=== PATIENT | male | born 1965 | race Caucasian/White ===

== ENCOUNTER 2020-06-29 12:28 | Inpatient (IN) | payer BC ==
[2020-06-29 13:53] VITALS: BMI 27.1
[2020-06-29] MEDS ORDERED: IBUPROFEN 400 MG TABLET (FP) PO PRN (14:24)
[2020-06-29] MEDS ORDERED: METHADONE HCL 10 MG TABLET (FOR DETOX USE ONLY) PO ONE (14:24)
[2020-06-29] MEDS ORDERED: MAGNESIUM HYDROX 2400MG/30ML ORAL SUSPENSION 30 ML CUP PO PRN (14:24)
[2020-06-29] MEDS ORDERED: MAGNESIUM CITRATE 300 ML BOTTLE PO PRN (14:24)
[2020-06-29] MEDS ORDERED: ACETAMINOPHEN 325 MG TABLET (FP) PO PRN ×2 (14:24)
[2020-06-29] MEDS ORDERED: MENTHOL/PHENOL 1 EACH UD MM PRN (14:24)
[2020-06-29] MEDS ORDERED: MAG HYDROX/AL HYDROX/SIMETH 30 ML UNIT-DOSE CUP PO PRN (14:24)
[2020-06-29] MEDS ORDERED: BISMUTH SUBSALICYLATE 262 MG/15 ML BTL PO PRN (14:24)
[2020-06-29] MEDS ORDERED: cloNIDine HCL 0.1 MG TABLET PO PRN (14:24)
[2020-06-29] MEDS ORDERED: ONDANSETRON *ODT* 4 MG TABLET SL PRN (14:24)
[2020-06-29] MEDS: METHOCARBAMOL 500 MG TABLET PO PRN (15:43)
[2020-06-29 17:30] LABS: HEMATOCRIT 37.3 % (35.4-49); HEMOGLOBIN 12.6 GM/dL (11.7-16.9); MCH 29.1 pg (25.7-33.7); MCHC 33.8 g/dl (32.0-35.9); MEAN PLT VOLUME 7.8 fl (7.5-11.1); PLATELET COUNT 185 K/MM3 (134-434); RBC 4.33 M/mm3 (4.00-5.60); RDW 13.5 % (11.9-15.9); WHITE BLOOD COUNT 6.7 K/mm3 (4.0-10.0)
[2020-06-29 17:32] LABS: BLOOD UREA NITROGEN 18.6 mg/dL (7-18); CALCIUM 8.8 mg/dL (8.5-10.1)
[2020-06-29] MEDS: hydrOXYzine PAMOATE 25 MG CAPSULE (FP) PO SCH ×2 (17:33→22:09)
[2020-06-29 17:36] LABS: CREATININE 1.1 mg/dL (0.55-1.3)
[2020-06-29 17:37] LABS: BILIRUBIN,TOTAL 0.4 mg/dL (0.2-1); TOT PROT 7.7 g/dl (6.4-8.2)
[2020-06-29] MEDS: MELATONIN 5 MG TABLETS PO SCH (22:09)
[2020-06-29] MEDS: THIAMINE HCL 100 MG TABLET (FP) PO SCH (22:09)
[2020-06-29] MEDS: BACITRACIN 0.9 GM PACKET TP SCH (22:09)
[2020-06-30] MEDS: hydrOXYzine PAMOATE 25 MG CAPSULE (FP) PO SCH ×5 (05:22→22:28)
[2020-06-30] MEDS ORDERED: diazePAM 5 MG TABLET PO PRN (09:13)
[2020-06-30] MEDS ORDERED: METHADONE HCL 10 MG TABLET (FOR DETOX USE ONLY) ONE (09:15)
[2020-06-30] MEDS ORDERED: METHADONE HCL 5 MG TABLET (FOR DETOX USE ONLY) ONE (09:16)
[2020-06-30] MEDS: PRENATAL VITAMINS W/ FOLIC ACID TABLET (FP) PO SCH (09:57)
[2020-06-30] MEDS: METHOCARBAMOL 500 MG TABLET PO PRN (09:57)
[2020-06-30] MEDS: BACITRACIN 0.9 GM PACKET TP SCH ×2 (09:57→22:28)
[2020-06-30] MEDS ORDERED: METHADONE (DETOX) 20 MG, METHADONE (DETOX) 5 MG PO ONE (10:00)
[2020-06-30 12:21] LABS: HIV INTERPRETATION NEGATIVE (NEGATIVE)
[2020-06-30] MEDS: THIAMINE HCL 100 MG TABLET (FP) PO SCH (22:28)
[2020-06-30] MEDS: MELATONIN 5 MG TABLETS PO SCH (22:28)
[2020-07-01] MEDS: hydrOXYzine PAMOATE 25 MG CAPSULE (FP) PO SCH ×5 (07:11→23:08)
[2020-07-01] MEDS ORDERED: METHADONE HCL 10 MG TABLET (FOR DETOX USE ONLY) PO ONE (10:00)
[2020-07-01] MEDS: BACITRACIN 0.9 GM PACKET TP SCH ×2 (10:16→23:08)
[2020-07-01] MEDS: METHOCARBAMOL 500 MG TABLET PO PRN (10:16)
[2020-07-01] MEDS: PRENATAL VITAMINS W/ FOLIC ACID TABLET (FP) PO SCH (10:16)
[2020-07-01] MEDS: THIAMINE HCL 100 MG TABLET (FP) PO SCH (23:08)
[2020-07-01] MEDS: MELATONIN 5 MG TABLETS PO SCH (23:09)
[2020-07-02] MEDS: hydrOXYzine PAMOATE 25 MG CAPSULE (FP) PO SCH ×5 (07:10→22:20)
[2020-07-02] MEDS ORDERED: METHADONE HCL 5 MG TABLET (FOR DETOX USE ONLY) ONE (09:07)
[2020-07-02] MEDS ORDERED: METHADONE HCL 10 MG TABLET (FOR DETOX USE ONLY) ONE (09:07)
[2020-07-02] MEDS ORDERED: METHADONE (DETOX) 10 MG, METHADONE (DETOX) 5 MG PO ONE (10:00)
[2020-07-02] MEDS: PRENATAL VITAMINS W/ FOLIC ACID TABLET (FP) PO SCH (10:14)
[2020-07-02] MEDS: BACITRACIN 0.9 GM PACKET TP SCH ×2 (10:15→22:20)
[2020-07-02] MEDS: MELATONIN 5 MG TABLETS PO SCH (22:20)
[2020-07-02] MEDS: THIAMINE HCL 100 MG TABLET (FP) PO SCH (22:20)
[2020-07-03] MEDS: hydrOXYzine PAMOATE 25 MG CAPSULE (FP) PO SCH ×5 (07:15→22:06)
[2020-07-03] MEDS ORDERED: METHADONE HCL 10 MG TABLET (FOR DETOX USE ONLY) PO ONE (10:00)
[2020-07-03] MEDS: PRENATAL VITAMINS W/ FOLIC ACID TABLET (FP) PO SCH (10:12)
[2020-07-03] MEDS: BACITRACIN 0.9 GM PACKET TP SCH ×2 (10:12→22:06)
[2020-07-03] MEDS: MELATONIN 5 MG TABLETS PO SCH (22:06)
[2020-07-03] MEDS: THIAMINE HCL 100 MG TABLET (FP) PO SCH (22:06)
[2020-07-04] MEDS ORDERED: METHADONE HCL 5 MG TABLET (FOR DETOX USE ONLY) PO ONE (06:00)
[2020-07-04 06:18] VITALS: BP 112/60; PULSE 44; TEMP 97.3
[2020-07-04] MEDS: hydrOXYzine PAMOATE 25 MG CAPSULE (FP) PO SCH ×2 (07:56→09:10)
[2020-07-04] MEDS: BACITRACIN 0.9 GM PACKET TP SCH (09:10)
== END 2020-07-04 09:11 | disposition home or self-care (01) | DRG 773 ==
LOC: YASAS 12:28 → Y3N 14:57
PROVIDERS: ADMIT Allergy & Immunology; ATTEND Allergy & Immunology
PROC: HZ2ZZZZ Detoxification Services for Substance Abuse Treatment (ICD-10-PCS; principal; 2020-06-29)
DX: F11.23 Opioid dependence with withdrawal (principal); F10.230 Alcohol dependence with withdrawal, uncomplicated; F13.20 Sedative, hypnotic or anxiolytic dependence, uncomplicated; F19.24 Other psychoactive substance dependence with psychoactive substance-induced mood disorder; R22.31 Localized swelling, mass and lump, right upper limb; R73.9 Hyperglycemia, unspecified; S60.522A Blister (nonthermal) of left hand, initial encounter; X58.XXXA Exposure to other specified factors, initial encounter; Y93.9 Activity, unspecified; Y92.239 Unspecified place in hospital as the place of occurrence of the external cause; Y99.9 Unspecified external cause status; Z59.0 Homelessness
CPT/HCPCS: 36415; 80053; 82962; 85027; 86780; 87389; 93005; 93010; C9803; U0003

== ENCOUNTER 2021-09-06 13:30 | Inpatient (IN) | payer BC ==
[2021-09-06] MEDS ORDERED: BISMUTH SUBSALICYLATE 262 MG/15 ML BTL PO PRN (14:35)
[2021-09-06] MEDS ORDERED: MENTHOL/PHENOL 1 EACH UD MM PRN (14:35)
[2021-09-06] MEDS ORDERED: MAGNESIUM CITRATE 300 ML BOTTLE PO PRN (14:35)
[2021-09-06] MEDS ORDERED: MAG HYDROX/AL HYDROX/SIMETH 30 ML UNIT-DOSE CUP PO PRN (14:35)
[2021-09-06] MEDS ORDERED: MAGNESIUM HYDROX 2400MG/30ML ORAL SUSPENSION 30 ML CUP PO PRN (14:35)
[2021-09-06] MEDS ORDERED: ONDANSETRON *ODT* 4 MG TABLET SL PRN (14:35)
[2021-09-06] MEDS ORDERED: IBUPROFEN 400 MG TABLET (FP) PO PRN (14:35)
[2021-09-06] MEDS ORDERED: cloNIDine HCL 0.1 MG TABLET PO PRN (14:35)
[2021-09-06] MEDS ORDERED: ACETAMINOPHEN 325 MG TABLET (FP) PO PRN ×2 (14:35)
[2021-09-06] MEDS ORDERED: NICOTINE 10 MG CARTRIDGE (INHALER) IH PRN (14:35)
[2021-09-06 15:38] VITALS: BMI 28.8
[2021-09-06] MEDS ORDERED: methaDONE HCL 10 MG TABLET (FOR DETOX USE ONLY) PO ONE (20:15)
[2021-09-06] MEDS: diazePAM 5 MG TABLET PO SCH ×2 (20:21→22:33)
[2021-09-06] MEDS: methaDONE HCL 10 MG TABLET (FOR DETOX USE ONLY) PO ONE ×2 (20:22→20:32)
[2021-09-06] MEDS: METHOCARBAMOL 500 MG TABLET PO PRN (20:24)
[2021-09-06] MEDS: hydrOXYzine PAMOATE 25 MG CAPSULE (FP) PO SCH ×2 (20:24→22:32)
[2021-09-06] MEDS: MELATONIN 5 MG TABLETS PO SCH (22:32)
[2021-09-06] MEDS: THIAMINE HCL 100 MG TABLET (FP) PO SCH (22:33)
[2021-09-07] MEDS: diazePAM 5 MG TABLET PO SCH ×4 (05:55→22:36)
[2021-09-07] MEDS: hydrOXYzine PAMOATE 25 MG CAPSULE (FP) PO SCH ×5 (05:56→22:36)
[2021-09-07] MEDS ORDERED: methaDONE HCL 10 MG TABLET (FOR DETOX USE ONLY) ONE (08:57)
[2021-09-07] MEDS: METHOCARBAMOL 500 MG TABLET PO PRN (09:44)
[2021-09-07] MEDS: PRENATAL VITAMINS W/ FOLIC ACID TABLET (FP) PO SCH (09:45)
[2021-09-07] MEDS ORDERED: cloNIDine HCL 0.1 MG TABLET PO PRN (11:23)
[2021-09-07] MEDS ORDERED: BUPRENORPHINE HCL 150 MCG, BUPRENORPHINE HCL 75 MCG BC ONE (11:23)
[2021-09-07 13:10] LABS: HEMATOCRIT 36.8 % (35.4-49); MCH 28.5 pg (25.7-33.7); MCHC 32.7 g/dl (32.0-35.9); MEAN CELL VOLUME 86.9 fl (80-96); MEAN PLT VOLUME 7.6 fl (7.5-11.1); PLATELET COUNT 153 10^3/uL (134-434); RBC 4.23 M/mm3 (4.00-5.60); RDW 13.7 % (11.9-15.9); WHITE BLOOD COUNT 3.6 K/mm3 (4.0-10.0)
[2021-09-07 13:32] LABS: CALCIUM 8.6 mg/dL (8.5-10.1)
[2021-09-07 13:33] LABS: BLOOD UREA NITROGEN 21.8 mg/dL (7-18)
[2021-09-07 13:35] LABS: ALBUMIN 3.2 g/dl (3.4-5.0)
[2021-09-07 13:37] LABS: TOT PROT 6.2 g/dl (6.4-8.2)
[2021-09-07 13:39] LABS: BILIRUBIN,TOTAL 0.3 mg/dL (0.2-1)
[2021-09-07] MEDS ORDERED: BUPRENORPHINE HCL 150 MCG FILM BC ONE (17:56)
[2021-09-07] MEDS ORDERED: BUPRENORPHINE HCL 75 MCG FILM BC ONE (17:57)
[2021-09-07] MEDS: BUPRENORPHINE HCL 150 MCG, BUPRENORPHINE HCL 75 MCG BC SCH (18:00)
[2021-09-07] MEDS: MELATONIN 5 MG TABLETS PO SCH (22:36)
[2021-09-07] MEDS: THIAMINE HCL 100 MG TABLET (FP) PO SCH (22:36)
[2021-09-08] MEDS ORDERED: BUPRENORPHINE HCL 75 MCG FILM BC ONE ×2 (04:35→18:13)
[2021-09-08] MEDS ORDERED: BUPRENORPHINE HCL 150 MCG FILM BC ONE ×2 (04:35→18:12)
[2021-09-08] MEDS: hydrOXYzine PAMOATE 25 MG CAPSULE (FP) PO SCH ×5 (05:55→22:20)
[2021-09-08] MEDS: BUPRENORPHINE HCL 150 MCG, BUPRENORPHINE HCL 75 MCG BC SCH ×2 (05:56→18:13)
[2021-09-08] MEDS: diazePAM 5 MG TABLET PO SCH ×3 (05:57→22:20)
[2021-09-08] MEDS ORDERED: methaDONE HCL 10 MG TABLET (FOR DETOX USE ONLY) PO ONE (10:00)
[2021-09-08] MEDS: diazePAM 5 MG TABLET PO PRN (10:10)
[2021-09-08] MEDS: PRENATAL VITAMINS W/ FOLIC ACID TABLET (FP) PO SCH (10:10)
[2021-09-08] MEDS: METHOCARBAMOL 500 MG TABLET PO PRN (10:11)
[2021-09-08] MEDS: MELATONIN 5 MG TABLETS PO SCH (22:20)
[2021-09-08] MEDS: THIAMINE HCL 100 MG TABLET (FP) PO SCH (22:20)
[2021-09-09] MEDS: hydrOXYzine PAMOATE 25 MG CAPSULE (FP) PO SCH ×5 (05:25→22:09)
[2021-09-09] MEDS: diazePAM 5 MG TABLET PO SCH ×2 (05:26→17:31)
[2021-09-09] MEDS: BUPRENORPHINE HCL 450 MCG FILM BC SCH ×2 (05:26→17:31)
[2021-09-09] MEDS: diazePAM 5 MG TABLET PO PRN (10:57)
[2021-09-09] MEDS: PRENATAL VITAMINS W/ FOLIC ACID TABLET (FP) PO SCH (10:57)
[2021-09-09] MEDS: MELATONIN 5 MG TABLETS PO SCH (22:09)
[2021-09-09] MEDS: THIAMINE HCL 100 MG TABLET (FP) PO SCH (22:09)
[2021-09-10] MEDS: hydrOXYzine PAMOATE 25 MG CAPSULE (FP) PO SCH (05:18)
[2021-09-10] MEDS ORDERED: diazePAM 5 MG TABLET PO ONE (06:00)
[2021-09-10] MEDS ORDERED: BUPRENORPHINE/NALOXONE 4 MG/1 MG FILM PACKET SL SCH (06:00)
[2021-09-10 09:01] VITALS: BP 126/79; PULSE 80; TEMP 97.1
[2021-09-10] MEDS ORDERED: methaDONE HCL 10 MG TABLET (FOR DETOX USE ONLY) PO ONE (10:00)
[2021-09-11] MEDS ORDERED: BUPRENORPHINE/NALOXONE 8 MG/2 MG FILM PACKET SL ONE (06:00)
== END 2021-09-10 09:40 | disposition home or self-care (01) | DRG 773 ==
LOC: YASAS 13:30 → Y3N 19:30
PROVIDERS: ADMIT Allergy & Immunology; ATTEND Allergy & Immunology
PROC: HZ2ZZZZ Detoxification Services for Substance Abuse Treatment (ICD-10-PCS; principal; 2021-09-06)
DX: F11.23 Opioid dependence with withdrawal (principal); F10.20 Alcohol dependence, uncomplicated; F14.20 Cocaine dependence, uncomplicated; F13.20 Sedative, hypnotic or anxiolytic dependence, uncomplicated; F19.24 Other psychoactive substance dependence with psychoactive substance-induced mood disorder; K21.9 Gastro-esophageal reflux disease without esophagitis; M54.50 Low back pain, unspecified; G89.29 Other chronic pain; Z86.19 Personal history of other infectious and parasitic diseases; Z59.01 Sheltered homelessness; Z56.0 Unemployment, unspecified
CPT/HCPCS: 36415; 80053; 85027; 86780; 93005; 93010; C9803; J0735; U0003; U0005